=== PATIENT | female | born 1940 ===

== ENCOUNTER 2018-05-17 17:00 | Emergency (ER) | payer OTHER ==
[~2018-05-17] VITALS: Ht 170.2 cm; Wt 62.1 kg
[2018-05-17] MEDS ORDERED: JANUMET 50-1,01 EACH (17:32)
[2018-05-17] MEDS ORDERED: LOSARTAN POTAS100 MG (17:32)
[2018-05-18] MEDS ORDERED: MIRALAX510 GM PO (04:58)
== END 2018-05-18 06:02 | disposition home or self-care (01) ==
LOC: ER 17:00
DX: K59.09 Other constipation (principal)